=== PATIENT | male | born 1945 | race Caucasian/White ===

== ENCOUNTER → 2018-10-19 08:28 | Outpatient (CLI) | payer MEDICARE, BC, SELFPAY ==
--- NOTE | 2018-10-19 09:51 | PM.TREADMILL ---
Cardiac Stress Test Report Referral & Results Date Patient Seen: 10/19/18 Requesting provider: Jimmy Silva Indication: Dyspnea upon exertion Rest ECG: Incomplete right bundle-branch block Procedure Note: Today following both written and verbal informed consent, the patient was exercised according to a standard Jin protocol. The patient exercised for a total of 6 minutes 7 seconds achieving a maximum heart rate of 155. Patient's maximum systolic blood pressure was 180. This was an estimated 7.0 MET's. There are no clear ST-T segment changes in the setting of the baseline ECG abnormality. Patient had normal heart rate and blood pressure response to exercise. Patient's oxygen saturation remained normal throughout. While at rest prior to initiating the treadmill patient did seem to go into some sort of accelerated supraventricular rhythm with a heart rate of about 100 then spontaneously dropped back down to a heart rate in the 60s that was clearly normal sinus rhythm. Patient also had frequent PVCs including brief runs of bigeminy. Functional aerobic impairment rated minus 5-10% on the sedentary scale or better than average Impression: No evidence of ischemia although limited somewhat by baseline ECG abnormalities. If clinical concern warrants could repeat this testing with perfusion imaging as well Dysrhythmia as above question further evaluation for possible more significant dysrhythmias Slightly better than average exercise capacity Please note: Actual ECG tracings can be found in the PACS system.
== END ==
PROVIDERS: PCP Student in an Organized Health Care Education/Training Program; Visit Provider Student in an Organized Health Care Education/Training Program
DX: R06.09 Other forms of dyspnea (principal); I49.3 Ventricular premature depolarization; R94.31 Abnormal electrocardiogram [ECG] [EKG]
CPT/HCPCS: 93016; 93017; 93018